=== PATIENT | female | born 1935 | race Caucasian/White ===

== ENCOUNTER 2019-10-06 12:01 | Emergency (ER) | payer MEDICARE, OTHER ==
[~2019-10-06] VITALS: Ht 157.5 cm; Wt 66.0 kg
[~2019-10-06 12:01] MED LIST: MELO15TA13; VYTORIN
[2019-10-06] MEDS ORDERED: TETANUS, DIPHTHERIA, PERTUSSIS VAC/PF 0.5ML (>7YR OLD) IM ONE (13:15)
[2019-10-06] MEDS ORDERED: LIDOCAINE HCL/PF 1% 10 MG/ML 5ML VIAL IJ ONE (13:15)
[2019-10-06 14:34] VITALS: BP 125/55
== END 2019-10-06 14:40 | disposition home or self-care (01) ==
LOC: ER 12:01
DX: L03.031 Cellulitis of right toe (principal); Z88.1 Allergy status to other antibiotic agents
CPT/HCPCS: 10060; 90471; 90715; 99283; J3490